=== PATIENT | female | born 1955 | race Caucasian/White ===

== ENCOUNTER 2021-12-19 09:58 | Emergency (ER) | payer MEDICARE, BC ==
[~2021-12-19] VITALS: Ht 160 cm; Wt 74.8 kg
[2021-12-19 10:04] VITALS: BP 133/84
--- NOTE | 2021-12-19 11:07 | NUR ---
Pt decides to Leave w/o Being seen states "Taking too long" Eloped . Notified (Raghavendra)
--- NOTE | 2021-12-19 11:08 | NUR ---
Donna ibarrahugh in [facility] - 12/19/21 at 1110 by AMRITA DOCTOR HAS CRITICAL PATIENT, PATIENT HAS BEEN HERE FOR AN HOUR AND ASKED TO LEAVE AGAINST MEDICAL ADVICE WITHOUGH BEING SEEN.
== END 2021-12-19 11:10 | disposition home or self-care (01) ==
LOC: ER 10:00
DX: Z53.21 Procedure and treatment not carried out due to patient leaving prior to being seen by health care provider (principal)

== ENCOUNTER 2024-02-27 09:59 | Emergency (ER) | payer BC, MEDICARE ==
[~2024-02-27] VITALS: Ht 160 cm; Wt 70.8 kg
[2024-02-27 13:31] VITALS: BP 128/74; TEMP 98.7; O2SAT 100
== END 2024-02-27 13:32 | disposition home or self-care (01) ==
LOC: ER 10:03
DX: R09.A2 Foreign body sensation, throat (principal); Z88.8 Allergy status to other drugs, medicaments and biological substances
CPT/HCPCS: 70140-TC; 70360-TC; 71045-TC; 74018